=== PATIENT | female | born 1995 | race Caucasian/White ===

== ENCOUNTER 2022-01-30 18:22 | Emergency (ER) | payer OTHER ==
[~2022-01-30] VITALS: Ht 165.1 cm; Wt 113.9 kg
[2022-01-30 18:43] VITALS: BP 151/93
--- NOTE | 2022-01-30 20:01 | NUR ---
CALLED TO DISCHARGE PT. NO ANSWER. PT LEFT WITHOUT DISCHARGE INSTRUCTIONS
== END 2022-01-30 20:01 | disposition home or self-care (01) ==
LOC: MED 18:22
DX: R23.3 Spontaneous ecchymoses (principal)
CPT/HCPCS: 99281